=== PATIENT | male | born 1965 | race African-American/Black ===

== ENCOUNTER 2021-10-22 01:44 | Emergency (ER) | payer BC, SELFPAY ==
[2021-10-22] VITALS (8 sets, daily range): BP systolic 113–131; BP diastolic 71–93; PULSE 93–125; RESP 16; TEMP 36.4; O2SAT 100
--- NOTE | ~2021-10-22 | CT_ITS ---
EXAMINATION: CT BRAIN W/O DATE: 10/22/2021 02:32 INDICATION: Possible trauma. Patient unresponsive. TECHNIQUE: Computed tomography (CT) of the head was performed without intravenous contrast. The dose- length product was 605.33 mGy-cm. COMPARISON: No prior studies for comparison. FINDINGS: Normal brain parenchymal volume for age. Normal joel-white differentiation. No acute intrac ranial hemorrhage, infarction, mass or mass effect. There is mild soft tissue swelling of the forehea d, likely posttraumatic. No underlying skull fracture. No ventriculomegaly or midline shift. Midline sagittal images demonstrate a normal corpus callosum, c raniovertebral junction and sella turcica. Basilar cisterns are patent. Paranasal sinuses and mastoids are pneumatized. No depressed skull fractures. IMPRESSION: 1. No acute intracranial abnormality. Reviewed, dictated and finalized at location A. [facility]
--- NOTE | ~2021-10-22 | CT_ITS ---
EXAMINATION: CTA chest PE protocol DATE: 10/22/2021 11:33 [employer] INDICATION: Syncope. Tachycardia. TECHNIQUE: Computed tomographic angiography (CTA) of the chest was performed with 100 mL Omnipaque-35 0 intravenous contrast. The dose-length product was 270.80 mGy-cm. Maximum intensity projection 3D-re constructions of the aorta and other arteries were constructed by the technologist on a separate work station. COMPARISON: None. FINDINGS: Examination is limited due to contrast bolus timing and respiratory motion artifact. No lar ge central pulmonary embolism. Heart size normal. No significant pleural or pericardial effusion. No thoracic lymphadenopathy. No focal airspace disease. No pneumothorax. No endobronchial lesions. There are a few subtle groundglass opacities in the left lower lobe which may represent atelectasis or dev eloping pneumonia. The upper abdomen is unremarkable. No acute osseous abnormality. IMPRESSION: 1. No large central pulmonary embolism. Significantly limited evaluation of peripheral pulmonary abril kodi. 2: Subtle patchy groundglass opacities of the left lower lobe which may represent atelectasis or dev eloping pneumonia. Reviewed, dictated and finalized at location A. [facility] [employer] IMPRESSION: 1. No large central pulmonary embolism. Significantly limited evaluation of per ipheral pulmonary arteries. 2: Subtle patchy groundglass opacities of the left lower lobe which may repres ent atelectasis or developing pneumonia.
--- NOTE | 2021-10-22 01:47 | ECG_ITS ---
Measurements Intervals [place] Rate: 119 P: IN: 0 QRS: 52 QRSD: 87 T: 56 QT: 316 QTc: 446 Interpretive Statements SINUS TACHYCARDIA VOLTAGE CRITERIA FOR LVH ST ELEVATION IN ANTERIOR LEADS- PROBABLY EARLY REPOLARIZATION ABNORMALITY BASELINE ARTIFACT- II, III, AVR, AVL, AVF, V1, V4-V6 ABNORMAL ECG Electronically Signed On 10-22-2021 7:48:34 [employer] by Roman Carmen D.O.
[2021-10-22] MEDS: SODIUM CHLORIDE 0.9% IV 1,000 ML 999 ML IV CONT ×2 (02:00→04:04)
--- NOTE | 2021-10-22 02:00 | ED.GENADULT ---
HPI - General Adult General Chief complaint: Unspecified Stated complaint: unresponsive episode fixed with narcan Time Seen by Provider: 10/22/21 01:47 Source: patient, EMS and RN notes reviewed Mode of arrival: EMS Limitations: no limitations History of Present Illness HPI narrative: 56-year-old male presents to the emergency department for evaluation after being found unresponsive in the bathroom at his workplace. Coworkers state they saw the patient going to the bathroom. When they went to go check on the patient after period of time they found him laying face down on the floor and patient was unresponsive. EMS was called and in route to the emergency department patient was treated with 2 mg of Narcan. EMS states that the patient had a very significant response to the Narcan including becoming significantly more alert and set up in the bed asking what was going on. EMS does not describe any seizure-like activity in the bathroom and does not describe a postictal phase during transport. Upon arrival to the emergency department patient is denying taking any drugs. Patient does have type 2 diabetes but has a blood sugar of 166. Related Data Home Medications Medication Instructions Recorded Confirmed metformin 500 mg BID 10/22/21 Allergies Allergy/AdvReac Type Severity Reaction Status Date / Time No Known Allergies Allergy Verified 10/22/21 02:03 Review of Systems Review of Systems: CONSTITUTIONAL: Patient had an unresponsive episode but denies any complaints. EYES: Denies visual changes, redness, or discharge. ENT: Denies rhinorrhea, congestion, sore throat, or otalgia. CARDIOVASCULAR: Denies chest pain, palpitations, or edema. RESPIRATORY: Denies cough or dyspnea. GASTROINTESTINAL: Denies abdominal pain, nausea, vomiting, or diarrhea. GENITOURINARY: Denies dysuria or hematuria. SKIN: Denies rash or itching. MUSCULOSKELETAL: Denies back pain, joint pain, or myalgia. NEUROLOGIC: Denies headache, numbness, or weakness. PSYCHIATRIC: Denies anxiety or depression. All systems reviewed & are unremarkable except as noted in HPI and below [facility] Social History Social History (Updated 10/22/21 @ 02:08 by Eloise Munoz, NENITA) Smoking status: Never smoker Alcohol intake: unknown Substance use: never Gender identity (if verbalized by the patient): Male Sexual Orientation (if Verbalized by the Patient): Straight or Heterosexual Exam Narrative: APPEARANCE: Well appearing, no pain, no distress, well-nourished. HEAD: normocephalic, atraumatic. EYES: PERRLA/EOMI, conjunctivae clear. NOSE: Normal no drainage NECK: Supple. No adenopathy, no masses. RESPIRATORY: Airway patent, respirations nonlabored. Clear to auscultation bilaterally, no rales, rhonchi, wheezing. CARDIOVASCULAR: Tachycardia ABDOMINAL: Soft, nontender, nondistended, normal bowel sounds MUSCULOSKELETAL: Moves all extremities. Strength/ROM intact, No edema, No calf tenderness. NEURO: Alert. Cranial nerves II through XII intact. Good gait. Good coordination SKIN: Warm, dry. Normal Color Course Reevaluation(s) Reevaluation #1: Patient states he did take an unknown pain pill that one of his coworkers gave him. Patient denies any complaints at this time. Feel this episode is most likely due to the patient taking a narcotic pain medication and having an adverse effect to this. I do not suspect that this syncopal episode was due to seizure are due to an underlying cardiac etiology. Patient was advised not to take unknown medications. Patient was also encouraged to have close follow-up with his primary care physician and he was encouraged to return to the emergency department if he had any worsening symptoms. All questions and concerns were addressed. Patient denied any complaints and was well-appearing at time of discharge from the emergency department. Vital Signs Vital signs: Vital Signs Temperature 97.6 F 10/22/21 01:48 Pulse Rate 118 H 10/22
--- NOTE | 2021-10-22 02:45 | PC.NURSE ---
RN informed pt that a person that identifies himself as his brother with last name of Torres has called to get an up date on his status, pt refuses to allow anyone to obtain information and states If they need something, they can call my cell phone.
[2021-10-22 02:52] LABS: Basophils Absolute Auto 0.1 K/mm3 (0.0-0.1); Basophils Percent Auto 0.5 % (0.2-1.2); Eosinophils Percent Auto 0.2 % (0-4.4); Hematocrit 38.7 % (42.0-52.0); Hemoglobin 12.4 g/dL (14.0-18.0); Immature Granulocyte Absolute 0.07 K/mm3 (0.00-0.031); Immature Granulocyte Percent A 0.5 % (0-0.5); Lymphocytes Absolute Auto 1.41 K/mm3 (0.9-3.2); Lymphocytes Percent Auto 10.6 % (18.3-44.2); Mean Corpuscular Hemoglobin 28.4 pg (26-34); Mean Corpuscular Volume 88.6 fl (80-100); Mean Platelet Volume 9.2 fl (7.4-10.4); Monocytes Absolute Auto 0.9 K/mm3 (0.1-0.6); Monocytes Percent Auto 6.8 % (2.6-8.5); Neutrophils Absolute Auto 10.8 K/mm3 (1.3-6.7); Neutrophils Percent Auto 81.4 % (45.5-73.1); Platelet Count Result 314 k/mm3 (150-375); Red Blood Count 4.37 M/mm3 (4.6-6.20); Red Cell Distribution Width 12.7 % (11.5-14.5); White Blood Count 13.3 K/mm3 (4.5-10.0)
[2021-10-22 03:08] LABS: Alanine Aminotransferase 32 U/L (4-50); Albumin Level 4.7 g/dL (3.5-5.1); Alkaline Phosphatase 97 U/L (38-126); Anion Gap 14 mmol/L (8-16); Aspartate Amino Transferase 58 U/L (17-59); Blood Urea Nitrogen 18 mg/dL (9-20); Calcium 9.2 mg/dL (8.4-10.2); Carbon Dioxide 23 mmol/L (22-30); Chloride 98 mmol/L (98-107); Estimated CRCL calculation 75 ml/min; Estimated Glomerular Filt Rate > 60; Glucose 226 mg/dL (65-110); Potassium 3.4 mmol/L (3.4-5.0); Sodium 135 mmol/L (137-145)
[2021-10-22 03:18] LABS: Amphetamine Screen Urine Negative (Negative); Barbiturate Screen Urine Negative (Negative); Benzodiazepines Screen Urine Negative (Negative); Cannabinoid Screen Urine Negative (Negative); Cocaine Screen Urine Negative (Negative); Methadone Screen Urine Negative (Negative); Opiate Screen Urine Negative (Negative); Phencyclidine Screen Urine Negative (Negative)
[2021-10-22 03:39] LABS: Thyroid Stimulating Hormone 0.634 uIU/mL (0.465-4.680)
== END 2021-10-22 05:15 | disposition home or self-care (01) ==
PROVIDERS: Emergency Provider Emergency Medicine
DX: R55 Syncope and collapse (principal); E11.9 Type 2 diabetes mellitus without complications; Z79.84 Long term (current) use of oral hypoglycemic drugs; R00.0 Tachycardia, unspecified; R94.31 Abnormal electrocardiogram [ECG] [EKG]; R91.8 Other nonspecific abnormal finding of lung field
CPT/HCPCS: 36415; 70450; 71275; 80053; 80307; 83735; 84443; 85025; 93005; 96360; 96361; 99284; J7030; Q9967